=== PATIENT | female | born 1985 | race Caucasian/White ===

== ENCOUNTER 2018-07-07 05:37 | Emergency (ER) | payer OTHER ==
[2018-07-07] MEDS ORDERED: ONDANSETRON 4 MG/2 ML VIAL IVP ONE (06:03)
[2018-07-07] MEDS ORDERED: NS 1,000 ML IV ONE ×2 (06:03→07:51)
[2018-07-07] MEDS ORDERED: ONDANSETRON 4 MG/2 ML VIAL ONE (06:03)
--- NOTE | 2018-07-07 06:03 | EDPHY ---
H & P Stated Complaint: migraine for 24 hours-different hen previous migraines-10w preg Time Seen by Provider: 07/07/18 06:03 HPI/ROS: HPI CHIEF COMPLAINT: Headache. HISTORY OF PRESENT ILLNESS: Patient is a 33-year-old female, she is currently 10 weeks , she presents to the emergency room with a headache that she has had for close to 24 hr. Patient describes a throbbing sensation behind her left eye. Left sided of her head, No visual disturbance, no neck pain, no fever , no meningeal signs. Complaining of a throbbing sensation left side of her head and left-sided behind her eye. No focal numbness or tingling no focal weakness. Denies fever. Patient denies this being sudden-onset. Denies being thunderclap. This is not the worst headache of her life. She states she woke up with this yesterday around 9:00 a.m.. It was not sudden onset gradually came on. She does report she has a history of migraines specially since having her IUD removed this past winter. She believes them to be hormone related. She reports to me that she has had approximately handful of migraines over the last few months. She does report that with this headache she had nausea vomiting with this she states she vomited multiple times. Not projectile. Denies any abdominal pain, denies chest pain or shortness of breath. Denies urinary symptoms. Past Medical History: Denies significant medical history Past Surgical History: Denies significant surgical history Social History: Denies current use of drugs alcohol tobacco. Family History: Noncontributory ROS REVIEW OF SYSTEMS: 10 Systems were reviewed and negative with the exception of the elements mentioned in the history of present illness. Exam Constitutional triage nursing summary reviewed, vital signs reviewed, awake/ alert. Vital signs stable. Eyes normal conjunctivae and sclera, EOMI, PERRLA. HENT normal inspection, atraumatic, moist mucus membranes, no epistaxis, neck supple/ no meningismus, no raccoon eyes. Respiratory clear to auscultation bilaterally, normal breath sounds, no respiratory distress, no wheezing. Cardiovascular rate normal, regular rhythm, no murmur, no edema, distal pulses normal. Gastrointestinal soft, non-tender, no rebound, no guarding, normal bowel sounds, no distension, no pulsatile mass. Genitourinary no CVA tenderness. Musculoskeletal no midline vertebral tenderness, full range of motion, no calf swelling, no tenderness of extremities, no meningismus, good pulses, neurovascularly intact. Skin pink, warm, & dry, no rash, skin atraumatic. Neurologic unremarkable nonfocal neurological exam, awake, alert and oriented x 3, AAOx3, moves all 4 extremities equally, motor intact, sensory intact, CN II -XII intact, normal cerebellar, normal vision, normal speech. Psychiatric normal mood/affect. Heme/Lymph/Immune no lymphadenopathy. Differential Diagnosis: Includes but is not limited to in a particular order migraine headache, tension headache, cluster headache, sinus venous thrombosis, intracranial bleed. Medical Decision Making: Given that this patient has a left-sided throbbing headache I will medicate her with a migraine cocktail, she is 10 weeks , I will not give her Toradol. She will receive Benadryl, IV Reglan, IV Dilaudid, IV Zofran and IV fluids. She has a nonfocal neurological exam here in the emergency room. I do not feel that she needs any acute imaging at this time. I think intracranial bleed given her history, as well as sinus venous thrombosis is unlikely. Plan for treatment re-evaluation Re-evaluation: 7:52 a.m. patient re-evaluated she received a migraine cocktail including IV Benadryl IV Reglan IV Dilaudid IV fluids. Also received IV Zofran. Patient much improved. Patient resting and sleeping. Neurological exam unremarkable. No focal neuro deficit on exam. heart tones 144. Given the patient has a normal neurological exam, and kruse is much improved with medication, no further kruse, feels well, I do believe she an be discharged home without imaging. We discussed return precautions, this includes, worsening kruse, fever, neck pain, vomiting. Source: Patient - Personal History LMP (Females 10-55): EDC: 05/18/18 Current Tetanus Diphtheria and Acellular Pertussis (TDAP): Yes - Medical/Surgical History Hx Asthma: No Hx Chronic Respiratory Disease: No Hx Diabetes: No Hx Cardiac Disease: No Hx Renal Disease: No Hx Cirrhosis: No Hx Alcoholism: No Hx HIV/AIDS: No Hx Splenectomy or Spleen Trauma: No Other PMH: 8 - Social History Smoking Status: Never smoked Constitutional: Initial Vital Signs Temperature (C) 37.1 C 07/07/18 05:44 Heart Rate 85 07/07/18 05:44 Respiratory Rate 16 07/07/18 05:44 Blood Pressure 135/81 H 07/07/18 05:44 O2 Sat (%) 94 07/07/18 05:44 O2 Delivery Mode Room Air Allergies/Adverse Reactions: No Known Allergies Allergy (Unverified 07/07/18 05:43) Home Medications: Medication Instructions Recorded Tylenol 07/07/18 Medical Decision Making - Data Points Laboratory Results: Laboratory Results 07/07/18 06:00 07/07/18 06:00 Medications Given: Discontinued Medications Dexamethasone (Decadron Injection) 10 mg IVP EDNOW ONE Stop: 07/07/18 06:11 Last Admin: 07/07/18 06:15 Dose: 10 mg Diphenhydramine HCl (Benadryl Injection) 50 mg IVP EDNOW ONE Stop: 07/07/18 06:11 Last Admin: 07/07/18 06:17 Dose: 50 mg Hydromorphone HCl (Dilaudid) 0.5 mg IVP EDNOW ONE Stop: 07/07/18 06:11 Last Admin: 07/07/18 06:20 Dose: 0.5 mg Sodium Chloride (Ns) 1,000 mls @ 0 mls/hr IV EDNOW ONE; Wide Open PRN Reason: Protocol Stop: 07/07/18 06:04 Last Admin: 07/07/18 06:04 Dose: 1,000 mls Sodium Chloride (Ns) 1,000 mls @ 0 mls/hr IV ONCE ONE PRN Reason: Wide Open Stop: 07/07/18 07:52 Last Admin: 07/07/18 07:59 Dose: 1,000 mls Metoclopramide HCl (Reglan Injection) 10 mg IVP EDNOW ONE Stop: 07/07/18 06:11 Last Admin: 07/07/18 06:22 Dose: 10 mg Ondansetron HCl (Zofran) 4 mg IVP EDNOW ONE Stop: 07/07/18 06:04 Last Admin: 07/07/18 06:04 Dose: 4 mg Departure - Departure Disposition: Home, Routine, Self-Care Clinical Impression: Headache Qualifiers: Headache type: unspecified Headache chronicity pattern: acute headache Intractability: intractable Qualified Code(s): R51 - Headache Condition: Good Instructions: Acute Headache (ED) Additional Instructions: 1. Rest and drink lots of fluids stay well-hydrated. Rest today. 2. Please return to the emergency room if you develop worsening headache, vomiting, fever, not doing well. 3. Take it easy today. Referrals: Patient,NotPresent [Unknown] - As per Instructions [facility],. [Clinic] - As per Instructions
[2018-07-07] MEDS ORDERED: DEXAMETHASONE 10 MG/ML VIAL IVP ONE (06:10)
[2018-07-07] MEDS ORDERED: HYDROmorphONE/DILAUDID 2 MG/ML INJ IVP ONE (06:10)
[2018-07-07] MEDS ORDERED: METOCLOPRAMIDE 10 MG/2 ML VIAL IVP ONE (06:10)
[2018-07-07 06:11] LABS: PLATELET COUNT 193 10^3/uL (150-400)
[2018-07-07 09:17] VITALS: BP 96/64
== END 2018-07-07 09:17 | disposition home or self-care (01) ==
DX: R51 Headache (principal); E86.9 Volume depletion, unspecified
CPT/HCPCS: 96374; J1100; J1170; J1200; J2405; J2765

== ENCOUNTER → 2018-09-10 | Outpatient (CLI) | payer OTHER | LOC: FIMAGING 10:15 ==